=== PATIENT | male | born 1970 | race African-American/Black ===

== ENCOUNTER 2017-08-23 16:10 | Emergency (ER) | payer SELFPAY ==
[~2017-08-23] VITALS: Ht 175.3 cm; Wt 79.0 kg
[~2017-08-23 16:10] MED LIST: AMLODIPINE10 MG PO; BENADRYL25 M1 PO; DOXYCYCL HYC100 MG PO; HYDROCHLOROT25 MG PO; KEFLEX500 MG OR; LORTAB 7.5 OR; MEDDOSEPAK PO; NO HOME MEDS; NOVOLOG MIX SC
[2017-08-23 17:01] LABS: HEMOGLOBIN 17.2 g/dl (14.0-18.0); IMMATURE GRANULOCYTES 0.4 % (0.0-1.0); MEAN CELL VOLUME 87.4 fL CALC (80.0-100.0); MEAN CORPUSCULAR HGB 31.3 pG CALC (26.0-32.0); MEAN CORPUSCULAR HGB CONC 35.8 g/L CALC (32.0-36.0); NEUT# 2.84 thou/uL (1.82-7.42); RED BLOOD COUNT 5.49 mill/uL (4.70-6.10); RED CELL DISTRI WIDTH 11.8 % (11.5-15.5)
[2017-08-23 17:17] LABS: ALBUMIN 5.1 g/dL (3.2-5.0); ALKALINE PHOSPHATASE 204 u/l (38-126); ANION GAP 20 (6-22 (CALC)); BILIRUBIN, TOTAL 0.8 mg/dL (0.0-1.4); BUN 15 mg/dL (9-20); BUN/CREATININE RATIO 14 (12-20 (CALC)); CALCIUM 10.9 mg/dL (8.4-10.2); CARBON DIOXIDE 25 mmol/l (22-30); CHLORIDE 98 mmol/l (95-108); CREATININE 1.1 mg/dL (0.7-1.3); GFR > 60 ML/MIN (>=60 (CALC)); GFR FOR AFR.AMER. > 60 ML/MIN (>=60 (CALC)); GLUCOSE 339 mg/dL (75-110); SGOT/AST 40 u/l (17-59); SGPT/ALT 49 u/l (21-72); SODIUM 138 mmol/l (137-146); TOTAL PROTEIN 8.3 g/dL (6.3-8.2)
[2017-08-23 17:20] LABS: POTASSIUM 5.2 mmol/l (3.5-5.1)
[2017-08-23 18:03] VITALS: BP 148/97
== END 2017-08-23 18:50 | disposition home or self-care (01) | DRG 305 ==
LOC: ED 16:10
PROVIDERS: Emergency Medicine
DX: I10 Essential (primary) hypertension (principal); E11.65 Type 2 diabetes mellitus with hyperglycemia; H53.8 Other visual disturbances

== ENCOUNTER 2022-02-26 22:32 | Emergency (ER) | payer SELFPAY ==
[~2022-02-26] VITALS: Ht 175.3 cm; Wt 77.0 kg
[2022-02-26 23:09] VITALS: BP 174/107
[2022-02-26 23:10] VITALS: BP 163/100
[2022-02-26] MEDS ORDERED: ALLEGRA-D 2424 HOUR PO (23:22)
[2022-02-26] MEDS ORDERED: VOLTAREN75 MG PO (23:22)
== END 2022-02-26 23:55 | disposition home or self-care (01) | DRG 153 ==
LOC: ED 22:32
DX: H65.92 Unspecified nonsuppurative otitis media, left ear (principal); J06.9 Acute upper respiratory infection, unspecified; I10 Essential (primary) hypertension; E11.9 Type 2 diabetes mellitus without complications

== ENCOUNTER 2022-03-03 00:53 | Emergency (ER) | payer SELFPAY ==
[~2022-03-03] VITALS: Ht 175.3 cm; Wt 80.0 kg
[~2022-03-03 00:53] MED LIST changes: +ALLEGRA-D 2424 HOUR PO; +VOLTAREN75 MG PO
[2022-03-03 01:16] VITALS: BP 179/110
[2022-03-03] MEDS ORDERED: FLOXIN OTIC0.3 % AS (01:16)
[2022-03-03] MEDS ORDERED: AMOX/K CLAV875 M1 PO (01:16)
[2022-03-03] MEDS ORDERED: LORTAB 1010 MG PO (01:16)
[2022-03-03 01:35] VITALS: BP 179/110
== END 2022-03-03 01:30 | disposition home or self-care (01) | DRG 153 ==
LOC: ED 00:53
DX: H66.92 Otitis media, unspecified, left ear (principal); I10 Essential (primary) hypertension; E11.9 Type 2 diabetes mellitus without complications

== ENCOUNTER 2022-03-17 12:50 | Emergency (ER) | payer SELFPAY ==
[~2022-03-17] VITALS: Ht 175.3 cm; Wt 77.0 kg
[~2022-03-17 12:50] MED LIST changes: +AMOX/K CLAV875 M1 PO; +FLOXIN OTIC0.3 % AS; +LORTAB 1010 MG PO
[2022-03-17 12:54] VITALS: BP 159/103
[2022-03-17 13:00] VITALS: BP 142/90
[2022-03-17 13:15] VITALS: BP 130/84
[2022-03-17] MEDS ORDERED: AMOX/K CLAV875 M1 PO (13:18)
[2022-03-17] MEDS ORDERED: ULTRAM50 M1 PO (13:18)
[2022-03-17] MEDS ORDERED: FLOXIN OTIC0.3 % AS (13:18)
[2022-03-17] MEDS ORDERED: ZYRTEC10 MG PO (13:18)
[2022-03-17 13:31] VITALS: BP 138/84
[2022-03-17 13:37] VITALS: BP 138/84
== END 2022-03-17 13:43 | disposition home or self-care (01) | DRG 156 ==
LOC: ED 12:50
DX: H60.92 Unspecified otitis externa, left ear (principal); H72.92 Unspecified perforation of tympanic membrane, left ear; H66.91 Otitis media, unspecified, right ear; I10 Essential (primary) hypertension; E11.9 Type 2 diabetes mellitus without complications

== ENCOUNTER 2022-11-30 16:53 | Emergency (ER) | payer SELFPAY ==
[~2022-11-30] VITALS: Ht 175.3 cm; Wt 77.4 kg
[~2022-11-30 16:53] MED LIST changes: +ULTRAM50 M1 PO; +ZYRTEC10 MG PO
[2022-11-30 17:04] VITALS: BP 170/107
[2022-11-30 17:15] VITALS: BP 167/105
[2022-11-30] MEDS ORDERED: PENICILLN VK500 MG PO (17:16)
[2022-11-30] MEDS ORDERED: TRAMADOL HYDROC50 M1 PO (17:16)
[2022-11-30 17:30] VITALS: BP 174/106
[2022-11-30 17:37] VITALS: BP 174/108
[2022-11-30 17:38] VITALS: BP 174/108
== END 2022-11-30 17:40 | disposition home or self-care (01) | DRG 158 ==
LOC: ED 16:53
DX: K04.7 Periapical abscess without sinus (principal); M84.68XA Pathological fracture in other disease, other site, initial encounter for fracture; K02.9 Dental caries, unspecified; I10 Essential (primary) hypertension; E11.9 Type 2 diabetes mellitus without complications; T46.5X6A Underdosing of other antihypertensive drugs, initial encounter; Z91.128 Patient's intentional underdosing of medication regimen for other reason

== ENCOUNTER 2024-04-30 11:11 | Emergency (ER) | payer SELFPAY ==
[~2024-04-30] VITALS: Ht 175.3 cm; Wt 75.0 kg
[~2024-04-30 11:11] MED LIST changes: +PENICILLN VK500 MG PO; +TRAMADOL HYDROC50 M1 PO
[2024-04-30 11:35] VITALS: BP 186/96
[2024-04-30 11:55] LABS: BASO% 0.3 % (0-3); EOS% 0.6 % (0-8); IMMATURE GRANULOCYTES 0.1 % (0.0-5.0); LYMPH% 35.3 % (15-41); MEAN CELL VOLUME 90.2 fL CALC (80.0-100.0); MEAN CORPUSCULAR HGB 30.5 pG CALC (26.0-32.0); MEAN CORPUSCULAR HGB CONC 33.8 g/dL CAL (32.0-36.0); MONO% 8.6 % (2-13); NEUT# 3.98 thou/uL (1.82-7.42); NEUT% 55.1 % (42-76); RED BLOOD COUNT 4.99 mill/uL (4.70-6.10); RED CELL DISTRI WIDTH 11.7 % (11.5-15.5)
[2024-04-30 11:56] LABS: URINE BILIRUBIN - DIPSTICK Negative (NEGATIVE); URINE BLOOD DIPSTICK Trace-intact (NEGATIVE); URINE GLUCOSE - DIPSTICK Negative (NEGATIVE); URINE KETONE Negative (NEGATIVE); URINE LEUK ESTERASE Negative (NEGATIVE); URINE NITRITE - DIPSTICK Negative (Negative); URINE PROTEIN - DIPSTICK 100 mg/dL (NEG-TRACE)
[2024-04-30 11:58] LABS: URINE COLOR Yellow
[2024-04-30 11:59] LABS: URINE MUCUS MODERATE hpf (NONE-FEW); URINE RBC 0-2 RBC/hpf (0-5)
[2024-04-30 12:00] VITALS: BP 178/92
[2024-04-30 12:00] LABS: HEMOGLOBIN 15.2 g/dl (14.0-18.0)
[2024-04-30 12:09] LABS: ALBUMIN 4.8 g/dL (3.2-5.0); BILIRUBIN, TOTAL 0.7 mg/dL (0.2-1.3); CREATININE 1.5 mg/dL (0.7-1.3); TOTAL PROTEIN 8.5 g/dL (6.3-8.2)
[2024-04-30 12:30] VITALS: BP 171/101
[2024-04-30 13:00] VITALS: BP 160/91
[2024-04-30 13:30] VITALS: BP 170/100
[2024-04-30] MEDS ORDERED: amLODIPine BESYLATE 5 MG/TAB PO ONE (13:35)
[2024-04-30 14:07] VITALS: BP 170/100
== END 2024-04-30 14:19 | disposition home or self-care (01) | DRG 683 ==
LOC: ED 11:11
PROVIDERS: Family Medicine
DX: I12.9 Hypertensive chronic kidney disease with stage 1 through stage 4 chronic kidney disease, or unspecified chronic kidney disease (principal); N17.9 Acute kidney failure, unspecified; E11.22 Type 2 diabetes mellitus with diabetic chronic kidney disease; N18.31 Chronic kidney disease, stage 3a; T46.5X6A Underdosing of other antihypertensive drugs, initial encounter; Z91.120 Patient's intentional underdosing of medication regimen due to financial hardship

== ENCOUNTER 2024-07-02 11:40 | Emergency (ER) | payer SELFPAY ==
[~2024-07-02] VITALS: Ht 175.3 cm; Wt 68.0 kg
[2024-07-02 11:56] VITALS: BP 139/86
[2024-07-02 12:00] VITALS: BP 133/88
[2024-07-02] MEDS ORDERED: NORVASC5 M1 PO (12:34)
[2024-07-02] MEDS ORDERED: METFORMIN HCL500 M1 PO (12:34)
[2024-07-02 12:39] VITALS: BP 133/88
== END 2024-07-02 12:46 | disposition home or self-care (01) | DRG 951 ==
LOC: ED 11:40
DX: Z76.0 Encounter for issue of repeat prescription (principal); I10 Essential (primary) hypertension; E11.9 Type 2 diabetes mellitus without complications; T46.5X6A Underdosing of other antihypertensive drugs, initial encounter; Z91.128 Patient's intentional underdosing of medication regimen for other reason; Z79.84 Long term (current) use of oral hypoglycemic drugs